=== PATIENT | female | born 1960 | race Caucasian/White ===

== ENCOUNTER 2016-11-06 16:44 | Observation (INO) | payer OTHER ==
--- NOTE | ~2016-11-06 | CN ---
Consultation Report [facility] [address] [place]. [address] NAME: JORGE ROLLINS : 58 STATUS : ADM Aron PAT#: [id number] AGE: 56 ADM/REG DATE : 11/06/16 MR#: [id number] REPORT SERV DATE: 11/08/16 DICTATED BY: MAGGIE JULIO DATE: 11/07/16 REPORT STATUS : Draft TRANSCRIBED BY: MODL DATE: 11/07/16 GI CONSULTATION DATE OF CONSULTATION: REASON FOR CONSULTATION: Elevated liver enzymes. HISTORY OF PRESENT ILLNESS: The patient is a 56-year-old white female who comes in after having a syncopal episode at home. She was having some upper abdominal pain and thought it was due to esophageal spasms, took a nitroglycerin and actually had a syncopal episode. Her transaminases were noted to be elevated and they had asked us to see her regarding the elevated liver enzymes. The patient reports periodically having episodes of upper abdominal pain. She does take Advil, couple of times a week. She denies any fever, chills, but did have diaphoresis when she had the episode of pain. PAST MEDICAL HISTORY: Includes tachycardia, cardiac ablation in the past, hypertension, hyperlipidemia, migraine headaches, depression, hysterectomy, endometriosis, cholecystectomy, has had colon polyps in the past, was seen by Dr. Bar. HABITS: No drugs, alcohol, or tobacco. FAMILY HISTORY: Noncontributory. REVIEW OF SYSTEMS: A 10-point review of systems, otherwise negative. ALLERGIES: NO KNOWN DRUG ALLERGIES. HOME MEDICATIONS: Include acetaminophen, biotin, Coreg, diltiazem, Sinequan, ibuprofen, metformin, multivitamin, nitroglycerin, nortriptyline, Prilosec, Livalo, spironolactone. PHYSICAL EXAMINATION: HEENT: Normocephalic, atraumatic. Extraocular muscles are intact. HEART: Regular without murmur. LUNGS: Clear to auscultation bilaterally without rales or rhonchi. ABDOMEN: Soft and nontender, and nondistended. Normoactive bowel sounds present. EXTREMITIES: No cyanosis, clubbing, or edema. NEUROLOGIC: She is alert, oriented, and answers questions appropriately. VITAL SIGNS: Blood pressure 121/61, temperature is 98.3, pulse 77, respirations 20. LABS: She had a CT scan of the abdomen and pelvis without contrast that showed mild distended fluid filled small bowel, with liquid stool in most of the colon, possibly gastroenteritis. Ultrasound has been ordered and pending. Sodium 141, potassium 3.7, chloride 106, CO2 is 25, BUN 14, creatinine 0.71, albumin 0.9, alkaline phosphatase is 163, Consultation Report [facility] [address] [place]. [address] NAME: JORGE ROLLINS : 58 STATUS : ADM Aron PAT#: [id number] AGE: 56 ADM/REG DATE : 11/06/16 MR#: [id number] REPORT SERV DATE: 11/08/16 DICTATED BY: MAGGIE JULIO DATE: 11/07/16 REPORT STATUS : Draft TRANSCRIBED BY: ROCIO DATE: 11/07/16 ALT is 864, AST is 978, amylase 47, lipase 162. IMPRESSION: 1. Elevated liver enzymes most likely secondary to ischemia from hypotension. 2. Upper abdominal pain on NSAIDs. No prior EGD. Recommend panendoscopy. Risks and benefits of the procedure as well as possible complications of bleeding, infection, perforation, or allergic reaction to the medicine were described. Questions entertained and answered. The patient understands and agrees to proceed. If liver enzymes remain elevated, plan to do liver workup. ЕКАТЕРИНА/ROCIO Maggie Julio M.D. / [id number] CC: Anatoliy Hurtado MD
--- NOTE | ~2016-11-06 | DS ---
Discharge Summary [facility] [address] [facility] [place]. [address] NAME: JORGE ROLLINS : 58 STATUS : DIS Aron PAT#: [id number] AGE: 56 ADM/REG DATE : 11/06/16 MR#: [id number] REPORT SERV DATE: 11/09/16 DICTATED BY: JR. ESPINOZA WILLIAM JOHN DATE: 11/08/16 REPORT STATUS : Draft TRANSCRIBED BY: ROCIO DATE: 11/08/16 ADMISSION DATE: 11/06/2016 DISCHARGE DATE: 11/08/2016 DISCHARGE DIAGNOSES: Include: 1. Syncope. 2. Elevated liver function enzymes. 3. Hypertension. 4. Paroxysmal atrial fibrillation. 5. Hyperlipidemia. 6. Diabetes mellitus type 2 with a hemoglobin A1c of 6.4. 7. History of esophageal spasm. DISCHARGE MEDICATIONS: Include: 1. Aspirin 325 mg orally daily. 2. Ibuprofen 600 mg orally daily as needed. 3. Coreg 12.5 mg in the morning, 6.25 in the evening. 4. Diltiazem 240 mg orally daily. 5. Nortriptyline 25 mg orally at bedtime. 6. Doxepin 25 mg orally at bedtime. 7. Omeprazole 40 mg daily. 8. Aldactone 25 mg orally daily. 9. Metformin 500 mg at bedtime. 10.Multivitamin tablet orally daily. 11.Tylenol as needed. OPERATIONS, PROCEDURES, AND TREATMENTS: 1. CT of the brain done 11/06/2016, which showed mild cerebral atrophy, otherwise, normal. 2. Chest x-ray done 11/06/2016 showed clear lungs with normal heart size. 3. CT of the abdomen and pelvis done 11/06/2016 showed mild distended fluid filled loops of small bowel with liquid stool, most likely gastroenteritis. 4. Ultrasound of the right upper quadrant done 11/07/2016, showed echodense hepatic parenchyma consistent with fatty liver infiltrate. Common bile duct was noted to be 9 mm. 5. MRI of the brain done 11/07/2016 which showed no evidence of acute infarct or bleed. There was evidence for some minimal gliotic change of the right and left centrum ovale, possibly results of small vascular events, nonacute. No hemorrhage. No mass effect. Remainder of the exam was normal. 6. Carotid flow study done 11/08/2016 showed normal carotids with antegrade vertebral flow. 7. Echocardiogram done 11/08/2016 showed normal left ventricular and right ventricular systolic and diastolic function with mild diastolic dysfunction. 8. Stress test. She achieved today stage III without evidence EKG nor radiologic evidence of ischemia, and ejection fraction is greater than 60%. HOSPITAL COURSE: The patient was a 56-year-old white female, presented to the emergency room with complaint of syncope. The patient has a history of esophageal spasms. She has taken Discharge Summary [address] [address] NAME: JORGE ROLLINS : 58 STATUS : DIS Aron PAT#: [id number] AGE: 56 ADM/REG DATE : 11/06/16 MR#: [id number] REPORT SERV DATE: 11/09/16 DICTATED BY: JR. ESPINOZA WILLIAM JOHN DATE: 11/08/16 REPORT STATUS : Draft TRANSCRIBED BY: ROCIO DATE: 11/08/16 nitroglycerin in the past for this. She had a chest pain. She took nitroglycerin, got up to go to the bathroom and had a syncopal episode. This has never happened to her before. In the emergency room, she was noted to have a relatively low blood pressure and was admitted for further workup. For exact details of her history, physical, and presenting data, please see Dr. Mar's dictated history and physical. The patient was admitted to the Clinical Decision Unit. She had a CT of the abdomen and pelvis as well as brain, which is detailed above. She was noted to have elevated liver function enzymes, was seen in consultation by Gastroenterology, who felt an ultrasound of the liver as well as upper endoscopy were indicated. She did get the ultrasound of liver. The endoscopy needed to be canceled because the performing physician had an emergency. The patient elects to be discharged to follow up with Gastroenterology in one week. Her discharging transaminases are SGOT of 562, SGPT of 928, and alkaline phosphatase of 191. Hepatitis panel was done and was nonreactive. Possible etiologies could be shock liver from transient hypotension versus fatty liver infiltrate. Further workup per GI and with outpatient followup in one to two weeks. Regarding the syncope, the patient had an echocardiogram and no evidence of thrombus. Stress test which was unremarkable. Ultrasound of the carotids that was unremarkable. No further cardiovascular workup seems indicated at this time. The remainder of the patient's health problems remained stable. She will be discharged home today 11/08/2016 and will follow up with Gastroenterology in one week. She will also follow up with primary care physician in two to four weeks. We would recommend followup CMP. This discharge took approximately 50 minutes for patient encounter, coordination of care, and documentation. For discharge exam and laboratory, please see daily progress note. DISCHARGE DIET: Regular. ACTIVITY: As tolerated with warning not to drive, walk, climb ladders, swim, etc, until seen by primary care physician. WJF/MODL Tarun Espinoza Jr, MD / [id number] CC: MD Dave Blakely M.D.
--- NOTE | ~2016-11-06 | HP ---
History And Physical [facility] [id number] [facility] [place]. [address] NAME: JORGE ROLLINS : 58 STATUS : ADM Aron PAT#: [id number] AGE: 56 ADM/REG DATE : 11/06/16 MR#: [id number] REPORT SERV DATE: 11/06/16 DICTATED BY: YURIY PAPPAS DATE: 11/06/16 REPORT STATUS : Draft TRANSCRIBED BY: MODL DATE: 11/06/16 DATE OF ADMISSION: 11/06/2016 REASON FOR ADMISSION: Syncope. [employer]CTION: At the [facility]. HISTORY OF PRESENT ILLNESS: This is a very pleasant 56-year-old female. She has a known past medical history of proximal SVT versus atrial fibrillation, very unclear, apparently had a cardiac ablation multiple years ago, known history of hypertension, hyperlipidemia, migraines, depression, and surgical history of hysterectomy with endometriosis history and cholecystectomy. Also known history of diffuse esophageal spasm. These do appear to improve with nitroglycerin. Her typical diffuse esophageal spasms are more in the upper esophagus. The patient comes in after this morning waking up having burning epigastric abdominal pain. Positive nausea. Her was alarmed, gave her a nitroglycerin. Seven minutes later, the patient was going on the way to the restroom and syncopized with no presyncope. This has not occurred before. Positive chills. Positive diaphoresis. No fevers. Positive nausea. No vomiting. No diarrhea. The patient does not endorse any chest pain or chest pressure. Only epigastric abdominal pain. There was some mild shortness of breath concurrently during that episode. The patient comes in here. Troponins negative. Has an EKG that is normal sinus rhythm, no ischemic ST-T changes. She does have a T-wave inversion though isolated in aVL. The patient apparently follows with Dr. Gilbert as an outpatient [facility]. Had a stress test that was negative in 01/2016. PAST MEDICAL HISTORY: See above. PAST SURGICAL HISTORY: See above. ALLERGIES: NO KNOWN DRUG ALLERGIES. SOCIAL HISTORY: Does not drink, do drugs or alcohol. Lives at home. . HOME MEDICATIONS: See MAR. We will continue what is relevant. FAMILY HISTORY: Hypertension at least one parent. No early family history of CAD or stroke. OBJECTIVE: VITAL SIGNS: She came in 102/69, she is about 120, temperature 97.4, pulse 66, respirations 15, and 98% on room air. GENERAL: No acute distress. HEENT: PERRLA. No scleral icterus. CARDIOVASCULAR: Regular rate and rhythm. No carotid bruit. History And Physical [address] [address] NAME: JORGE ROLLINS : 58 STATUS : ADM Aron PAT#: [id number] AGE: 56 ADM/REG DATE : 11/06/16 MR#: [id number] REPORT SERV DATE: 11/06/16 DICTATED BY: YURIY PAPPAS DATE: 11/06/16 REPORT STATUS : Draft TRANSCRIBED BY: MODL DATE: 11/06/16 RESPIRATORY: Clear to auscultation bilaterally. No wheezes. No crackles. ABDOMEN: She does have some mild tenderness to palpation, more in the epigastric region. No peritoneal signs. No rebound tenderness. EXTREMITIES: No edema. No ecchymosis. NEUROLOGIC: A and O x4. GCS 15. PSYCH: Normal affect and mood. LABORATORY DATA: White count is normal at 8.8, hemoglobin 13.4, platelets 169,000. Potassium 4.2, bicarb 26, creatinine 0.79, BUN 16, sodium 140, sugar 153. Troponin negative. Urinalysis is fairly clean. Chest x-ray under-inspired but no infiltrate. ASSESSMENT AND PLAN: 1. Syncope, possibly exacerbated by nitroglycerin associated orthostasis. 2. Epigastric abdominal pain with improvement with nitroglycerin though. 3. History of diffuse esophageal spasms, typically for her, they are in the upper esophagus. 4. History of hypertension and hyperlipidemia. PLAN: We will go ahead and admit this patient to observation. Given she had cardiac risk factors to warrant, a nuclear stress test by Dr. Gilbert in the past. We will go ahead and rule that out with one tomorrow. Cardiac enzymes continued to be negative. If so consider possible diffuse esophageal spasm. May need to be followed up as an outpatient resource protection specialist. The patient does take known NSAIDs, could be multifactorial from a peptic ulcer disease with positive orthostasis, suspicion with induction with nitroglycerin. We will get CT of the abdomen and pelvis rule to out any GI pathology with CMP, amylase, lipase. Give a GI cocktail. D5 LR. See rest of my orders. All questions were answered. It took over 60 minutes to do. JOANN/ROCIO Yuriy Pappas DO / [id number] CC: MD Dr. Sylvester Blakely
[2016-11-06 14:14] LABS: BASOPHILS 0.1 %; BASOPHILS ABSOLUTE 0.01 10/3/uL (0.0-0.16); EOSINOPHILS 1.7 %; EOSINOPHILS ABSOLUTE 0.15 10/3/uL (0.0-0.53); HEMATOCRIT 39.4 % (36.0-48.0); HEMOGLOBIN 13.4 g/dL (12.0-16.0); IMMATURE GRANULOCYTES 0.2 %; IMMATURE GRANULOCYTES ABSOLUTE 0.02 10/3/uL (0.0-0.11); LYMPHOCYTES 10.2 %; MEAN CORPUSCULAR HEMOGLOB 30.8 pg (26.0-34.0); MEAN CORPUSCULAR VOLUME 90.6 fL (80-100); MEAN PLATELET VOLUME 11.3 fL (9.2-13.0); MONOCYTES 2.5 %; MONOCYTES ABSOLUTE 0.22 10/3/uL (0.21-1.20); NEUTROPHILS 85.3 %; NEUTROPHILS ABSOLUTE 7.49 10/3/uL (2.02-8.40); PLATELET COUNT 169 10/3/uL (150-400); RBC DISTRIBUTION WIDTH 12.9 % (12.0-16.0); RED CELL COUNT 4.35 10/6/uL (4.0-5.6); WHITE BLOOD CELLS 8.8 10/3/uL (4.5-10.5)
[2016-11-06 14:15] LABS: MANUAL DIFF NO %
[2016-11-06 14:26] LABS: CHEST PAIN PROFILE TAT 0 Hrs 29 Mins; CHLORIDE, SERUM 104 MMOL/L (96-112); CO2 (CARBON DIOXIDE) 26 MMOL/L (24-34); CREATININE 0.79 MG/DL (0.55-1.02); GFR AFRICAN AMERICAN 96 ML/MIN (>=60); GFR NON AFRICAN AMERICAN 83 ML/MIN (>=60); SODIUM, SERUM 140 MMOL/L (135-148); TROPONIN I <0.02 NG/ML (<0.05)
[2016-11-06 14:27] LABS: BUN (BLOOD UREA NITROGEN) 16 MG/DL (6-23); CALCIUM, SERUM 8.6 MG/DL (8.5-10.4); GLUCOSE, SERUM 153 MG/DL (60-99); POTASSIUM, SERUM 4.2 MMOL/L (3.5-5.3)
[2016-11-06 15:09] LABS: ASCORBIC ACID (UR NOT ORDER) NEG (NEG); BILIRUBIN, URINE SMALL (NEG); ER URINALYSIS TAT 0 Hrs 12 Mins; KETONE, URINE TRACE MG/DL (NEG); LEUKOCYTE ESTERASE(NOT OR NEG (NEG); NITRITE (URINE) NEG (NEG); WBC (NOT ORDERED) (RFLEX) 4 (0-5)
[~2016-11-06 16:44] MED LIST: ACET500CAP PO; ADVIL PO; ALDACTAZID25 MG/25 M PO; CENTRUM PO; COREG12 PO; COREG6 PO; DILT-XR240 MG PO; DOX25 PO; GLUCOPHXR PO; HARD NAILS PO; LIVALO4 MG PO; NITROSTAT0.4 MG SL; NOR10 PO; NOR25 PO; PRILOSEC40 MG PO; SPIRO25 PO; T PO; [UNRECOGNIZED DRUG - OTHER] PO
[2016-11-06 21:02] LABS: BASOPHILS 0.1 %; BASOPHILS ABSOLUTE 0.01 10/3/uL (0.0-0.16); EOSINOPHILS 0.6 %; EOSINOPHILS ABSOLUTE 0.05 10/3/uL (0.0-0.53); HEMATOCRIT 41.5 % (36.0-48.0); HEMOGLOBIN 14.2 g/dL (12.0-16.0); IMMATURE GRANULOCYTES 0.3 %; IMMATURE GRANULOCYTES ABSOLUTE 0.02 10/3/uL (0.0-0.11); LYMPHOCYTES 9.5 %; LYMPHOCYTES ABSOLUTE 0.76 10/3/uL (0.67-4.30); MEAN CORPUS HGB CONC 34.2 g/dL (32.0-36.0); MEAN CORPUSCULAR HEMOGLOB 30.9 pg (26.0-34.0); MEAN CORPUSCULAR VOLUME 90.2 fL (80-100); MONOCYTES 3.9 %; MONOCYTES ABSOLUTE 0.31 10/3/uL (0.21-1.20); NEUTROPHILS 85.6 %; NEUTROPHILS ABSOLUTE 6.84 10/3/uL (2.02-8.40); PLATELET COUNT 208 10/3/uL (150-400); RBC DISTRIBUTION WIDTH 12.9 % (12.0-16.0)
[2016-11-06 21:05] LABS: MANUAL DIFF NO %
[2016-11-06 21:19] LABS: PARTIAL THROMBO TIME 23.5 SEC (22.5-37.2); PROTIME (NOT ORD) 13.3 SEC (12.0-14.5)
[2016-11-06 21:25] LABS: A/G RATIO 1.2 (0.7-1.9); ALBUMIN 3.8 G/DL (3.5-5.0); ALKALINE PHOSPHATASE 163 U/L (45-117); BUN (BLOOD UREA NITROGEN) 19 MG/DL (6-23); CALCIUM, SERUM 8.6 MG/DL (8.5-10.4); CHLORIDE, SERUM 106 MMOL/L (96-112); CO2 (CARBON DIOXIDE) 27 MMOL/L (24-34); CPK 38 U/L (0-200); CREATININE 0.77 MG/DL (0.55-1.02); GFR AFRICAN AMERICAN 99 ML/MIN (>=60); GFR NON AFRICAN AMERICAN 86 ML/MIN (>=60); GLOBULIN 3.2 G/DL (2.5-4.1); PHOSPHORUS, SERUM 3.5 MG/DL (2.5-4.5); POTASSIUM, SERUM 3.8 MMOL/L (3.5-5.3); SGOT(AST) 978 U/L (5-40); SGPT(ALT) 864 U/L (5-65); SODIUM, SERUM 141 MMOL/L (135-148); TOTAL BILIRUBIN 0.9 MG/DL (0-1.2); TROPONIN I <0.02 NG/ML (<0.05); ULTRASENSITIVE TSH 0.647 MCIU/ML (0.358-3.740)
[2016-11-06 21:26] LABS: CK-MB < 0.5 NG/ML; GLUCOSE, SERUM 115 MG/DL (60-99)
[2016-11-06 21:34] LABS: B NATRIURETIC PEPTIDE (BNP) < 2.0 PG/ML (< 100.0)
[2016-11-06 21:44] LABS: PROCALCITONIN 0.52 ng/mL (<0.5)
[2016-11-07 04:47] LABS: BASOPHILS 0.2 %; BASOPHILS ABSOLUTE 0.01 10/3/uL (0.0-0.16); EOSINOPHILS 0.9 %; EOSINOPHILS ABSOLUTE 0.05 10/3/uL (0.0-0.53); HEMATOCRIT 38.9 % (36.0-48.0); HEMOGLOBIN 13.3 g/dL (12.0-16.0); IMMATURE GRANULOCYTES 0.4 %; IMMATURE GRANULOCYTES ABSOLUTE 0.02 10/3/uL (0.0-0.11); LYMPHOCYTES 23.3 %; LYMPHOCYTES ABSOLUTE 1.27 10/3/uL (0.67-4.30); MANUAL DIFF NO %; MEAN CORPUS HGB CONC 34.2 g/dL (32.0-36.0); MEAN CORPUSCULAR HEMOGLOB 30.9 pg (26.0-34.0); MEAN CORPUSCULAR VOLUME 90.3 fL (80-100); MONOCYTES 3.9 %; MONOCYTES ABSOLUTE 0.21 10/3/uL (0.21-1.20); NEUTROPHILS 71.3 %; NEUTROPHILS ABSOLUTE 3.89 10/3/uL (2.02-8.40); PLATELET COUNT 199 10/3/uL (150-400); RED CELL COUNT 4.31 10/6/uL (4.0-5.6); WHITE BLOOD CELLS 5.5 10/3/uL (4.5-10.5)
[2016-11-07 05:00] LABS: BUN (BLOOD UREA NITROGEN) 14 MG/DL (6-23); CALCIUM, SERUM 8.1 MG/DL (8.5-10.4); CHLORIDE, SERUM 106 MMOL/L (96-112); CO2 (CARBON DIOXIDE) 25 MMOL/L (24-34); CREATININE 0.71 MG/DL (0.55-1.02); GFR AFRICAN AMERICAN 110 ML/MIN (>=60); GFR NON AFRICAN AMERICAN 95 ML/MIN (>=60); GLUCOSE, SERUM 148 MG/DL (60-99); PHOSPHORUS, SERUM 2.7 MG/DL (2.5-4.5); POTASSIUM, SERUM 3.7 MMOL/L (3.5-5.3); SODIUM, SERUM 141 MMOL/L (135-148)
[2016-11-07 05:28] LABS: GLYCOHEMOGLOBIN (HbA1c) 6.4 % (4.7-6.1)
[2016-11-07 08:19] LABS: CK-MB < 0.5 NG/ML; CPK 36 U/L (0-200); TROPONIN I <0.02 NG/ML (<0.05)
[2016-11-08 05:32] LABS: BASOPHILS 0.2 %; BASOPHILS ABSOLUTE 0.01 10/3/uL (0.0-0.16); EOSINOPHILS 3.5 %; EOSINOPHILS ABSOLUTE 0.17 10/3/uL (0.0-0.53); HEMATOCRIT 37.8 % (36.0-48.0); HEMOGLOBIN 12.9 g/dL (12.0-16.0); IMMATURE GRANULOCYTES 0.4 %; IMMATURE GRANULOCYTES ABSOLUTE 0.02 10/3/uL (0.0-0.11); LYMPHOCYTES 36.4 %; LYMPHOCYTES ABSOLUTE 1.75 10/3/uL (0.67-4.30); MEAN CORPUS HGB CONC 34.1 g/dL (32.0-36.0); MEAN CORPUSCULAR HEMOGLOB 31.4 pg (26.0-34.0); MEAN PLATELET VOLUME 9.9 fL (9.2-13.0); MONOCYTES 8.3 %; NEUTROPHILS 51.2 %; NEUTROPHILS ABSOLUTE 2.46 10/3/uL (2.02-8.40); PLATELET COUNT 183 10/3/uL (150-400); RED CELL COUNT 4.11 10/6/uL (4.0-5.6); WHITE BLOOD CELLS 4.8 10/3/uL (4.5-10.5)
[2016-11-08 05:35] LABS: MANUAL DIFF NO %
[2016-11-08 05:40] LABS: CPK 40 U/L (0-200); TROPONIN I <0.02 NG/ML (<0.05)
[2016-11-08 05:41] LABS: CK-MB 0.5 NG/ML
[2016-11-08 05:46] LABS: ALBUMIN 3.2 G/DL (3.5-5.0); ALKALINE PHOSPHATASE 191 U/L (45-117); BUN (BLOOD UREA NITROGEN) 9 MG/DL (6-23); CALCIUM, SERUM 8.2 MG/DL (8.5-10.4); CHLORIDE, SERUM 107 MMOL/L (96-112); CO2 (CARBON DIOXIDE) 28 MMOL/L (24-34); DIRECT BILIRUBIN 0.3 MG/DL (0.0-0.4); GFR AFRICAN AMERICAN 117 ML/MIN (>=60); GFR NON AFRICAN AMERICAN 101 ML/MIN (>=60); GLUCOSE, SERUM 101 MG/DL (60-99); INDIRECT BILIRUBIN(NOT ORDER) 0.5 MG/DL (0.1-0.9); POTASSIUM, SERUM 3.6 MMOL/L (3.5-5.3); SGOT(AST) 562 U/L (5-40); SGPT(ALT) 928 U/L (5-65); SODIUM, SERUM 142 MMOL/L (135-148); TOTAL BILIRUBIN 0.8 MG/DL (0-1.2); TOTAL PROTEIN 6.4 G/DL (6.0-8.5)
[2016-11-08 08:51] LABS: HEPATITIS B SURFACE ANTIGEN NON-REACTIVE (NON-REACT)
[2016-11-08 08:55] LABS: HEPATITIS C ANTIBODY NON-REACTIVE (NON-REACT)
[2016-11-08 08:56] LABS: HEPATITIS B CORE AB IGM NON-REACTIVE (NON-REAC)
[2016-11-08 08:58] LABS: HEP A ANTIBODY IGM NON-REACTIVE (NON-REACT)
[2016-11-08] MEDS ORDERED: ASABAYER PO (16:51)
== END 2016-11-08 17:25 | disposition home or self-care (01) ==
LOC: ER 16:44 → CDU1 17:09 → CDU2 17:17
PROVIDERS: Emergency Medicine; Internal Medicine
DX: R55 Syncope and collapse (principal); R94.5 Abnormal results of liver function studies; I10 Essential (primary) hypertension; I48.0 Paroxysmal atrial fibrillation; E78.5 Hyperlipidemia, unspecified; E11.9 Type 2 diabetes mellitus without complications; F32.9 Major depressive disorder, single episode, unspecified; Z90.710 Acquired absence of both cervix and uterus; Z90.49 Acquired absence of other specified parts of digestive tract; Z82.49 Family history of ischemic heart disease and other diseases of the circulatory system; Z98.890 Other specified postprocedural states; Z86.010 Personal history of colon polyps; Z79.84 Long term (current) use of oral hypoglycemic drugs; Z79.899 Other long term (current) drug therapy
CPT/HCPCS: 70450; 70551; 71010; 74176; 76700; 76705; 78452; 80048; 80053; 80074; 80076; 81001; 82150; 82272; 82550; 82553; 82962; 83036; 83690; 83735; 83880; 84100; 84145; 84443; 84484; 85025; 85610; 85730; 93005; 93017; 93306; 93880; 96372; 96374; 96375; 96376; 99285; A9270-GY; A9502; C9113; G0378; J1170; J2405